=== PATIENT | male | born 1985 | race Caucasian/White ===

== ENCOUNTER → 2016-04-18 | Day surgery (SDC) | payer OTHER ==
[~2016-04-18] VITALS: Ht 172.7 cm; Wt 74.8 kg
[~2016-04-18] MED LIST: ACETAMINOPHEN 500 MG TAB PO PRN; BACITRACIN OINT 30GM As Ordered ONE; BACITRACIN OINT 30GM TOP ONE; GLYCOPYRROLATE INJ 0.2 MG/ML 2 ML VIAL As Ordered ONE; HYDROmorphone HCL 2 MG/ML 1ML VIAL (J1170) As Ordered ONE; LIDOCAINE 2% INJ 100 MG/5 ML SDV (FOR ANES.) As Ordered ONE; LIDOCAINE W/EPINEPHRINE 1% 20ML VIAL As Ordered ONE; LIDOCAINE W/EPINEPHRINE 1% 20ML VIAL XX ONE; LR 1,000 ML IV SCH; METOCLOPRAMIDE INJ 10MG/2ML VIAL (J2765) As Ordered ONE; MIDAZOLAM INJ 2 MG/2 ML VIAL (J2250) As Ordered ONE; NEOSTIGMINE 1MG/ML 5 ML SYRINGE (J2710) As Ordered ONE; ONDANSETRON 4MG/2ML VIAL (J2405) As Ordered ONE; PERCOCET 5MG/325MG TAB PO PRN; PROPOFOL 200 MG/20 ML VIAL As Ordered ONE; dexameTHASONE 4 MG/ML 1ML VIAL (J1100) As Ordered ONE; fentaNYL 100 MCG/2 ML INJECTION (J3010) As Ordered ONE; fentaNYL 100 MCG/2 ML INJECTION (J3010) IV PRN
--- NOTE | 2016-04-18 14:54 | RO ---
DATE OF PROCEDURE: 04/18/2016 PREPROCEDURE DIAGNOSIS: Lesion on the right neck. POSTPROCEDURE DIAGNOSIS: Lesion on the right neck. PROCEDURE: Excision of mass on right neck. SURGEON: Navneet Chowdhury MD GUEST RELATIONS COORDINATOR: Frankie Suarez ANESTHESIA: General. DESCRIPTION OF PROCEDURE: Under general anesthesia, the patient was draped in the usual manner. I made an incision inferior to the mass. I elevated beneath the skin. I went down through platysma. I dissected around the mass inferiorly, anteriorly, posteriorly, and then superiorly. Bleeding was controlled with cautery. The mass was delivered from the wound. Bleeding was controlled with cautery. I then put in a Shawn drain and then closed the wound with #4-0 Prolene suture. The patient tolerated the procedure well and was transferred to the recovery room in excellent condition.
[2016-04-18 15:40] VITALS: BP 118/63
== END ==
LOC: M SDC 11:09
PROVIDERS: ATTEND Otolaryngology
DX: L72.0 Epidermal cyst (principal); F17.210 Nicotine dependence, cigarettes, uncomplicated; Z88.0 Allergy status to penicillin; Z91.013 Allergy to seafood
CPT/HCPCS: 21555; 88304; J1100; J1170; J2250; J2405; J2710; J2765; J3010